=== PATIENT | female | born 1955 | race Caucasian/White ===

== ENCOUNTER → 2025-02-25 | Outpatient (CLI) | payer MEDICARE, OTHER ==
--- NOTE | 2025-02-25 14:37 | CT ---
EXAMINATION TYPE: CT chest wo con DATE OF EXAM: 02/25/2025 COMPARISON: None CLINICAL INDICATION: Female, 69 years old with history of J84.9 INTERSTITIAL PULMONARY DISEASE; PHH, ILD, SOB TECHNIQUE: CT scan of the thorax is performed without IV contrast. CT DLP: 453.[address] CTDI: mGy Automated exposure control for dose reduction was used. FINDINGS: LUNGS: The lungs are grossly clear, there is no concerning parenchymal mass or nodule identified. T here is no pleural effusion or pneumothorax seen. The tracheobronchial tree is patent. There is no b ronchiectasis, honeycombing, reticulation, groundglass opacity or chronic interstitial fibrosis or at electasis. There is a borderline enlarged 11 mm short axis precarinal lymph node. The main pulmonary artery is mildly prominent measuring 3.1 cm. There is no thoracic aortic aneurysm. There are no focal osseous lesions IMPRESSION: 1. No definite evidence of interstitial lung disease as described above. 2. No acute cardiopulmonary disease. 3. mildly prominent main pulmonary artery measuring 3.1 cm. 4. Borderline enlarged 11 mm short axis precarinal lymph node. Follow-up recommendations for incidental pulmonary nodules are per [employer] or [employer]. [facility], , 02/25/2025 2:35 PM
== END | disposition home or self-care (01) ==
LOC: RADCTMAIN 13:52
PROVIDERS: ATTEND Internal Medicine Critical Care Medicine
DX: J84.9 Interstitial pulmonary disease, unspecified (principal)
CPT/HCPCS: 71250